=== PATIENT | female | born 1985 | race Caucasian/White ===

== ENCOUNTER → 2016-11-23 | Outpatient (CLI) | payer OTHER ==
--- NOTE | 2016-11-23 15:15 | Diagnostic Imaging Report ---
[facility] [address] [facility].[address] [address] Report Submission Date: Nov 23, 2016 2:28:42 PM CDT Patient Study Name: XIMENA ROQUE Date: Nov 23, 2016 1:49:38 PM CDT Modality Type: US Gender: F Description: TRANSVAGINAL PELVIS : 89 Institution: [facility] Physician DAFNE PACK - CIERRA Transvaginal pelvic ultrasound CLINICAL HISTORY: Lower abdominal pain for 3 days. TECHNIQUE: Real-time sonography of the pelvis is performed in transverse and longitudinal views using endovaginal technique. FINDINGS: The uterus measures 8.1 cm in length by 3.6 cm in AP and 4.0 cm coronal dimension. Endometrium is well-defined and measures 9 mm in thickness. Right ovary measures 2.8 x 2.2 x 2.6 cm in size with a calculated volume of 8.2 mL. Left ovary measures 3.2 x 1.5 x 2.6 cm in size with a calculated volume of 6.6 mL. Ovarian follicles are present bilaterally. Blood flow is confirmed in both ovaries on color flow imaging and Doppler interrogation. There is no free fluid in the pelvis or pelvic mass. There is slight distortion of the endocervical canal although there is no obvious cervical mass or large nabothian cyst. This may be related to isoechoic fibroid. IMPRESSION: Prominent bilateral follicles. Distortion of the endocervical canal likely related to isoechoic fibroid. Electronically signed on Nov 23, 2016 2:28:42 PM CDT by: Andi YODER
== END ==
LOC: RAD 13:36
PROVIDERS: ATTEND Family Medicine
DX: R10.30 Lower abdominal pain, unspecified (principal)
CPT/HCPCS: 76830

== ENCOUNTER 2017-08-10 14:15 | Emergency (ER) | payer SELFPAY ==
--- NOTE | 2017-08-10 14:31 | ED Physician Documentation ---
General Adult - HISTORIAN Historian: patient - HPI Stated Complaint: R wrist pain Chief Complaint: General Adult Onset: days ago (2) Timing: still present Severity: moderate Further Comments: yes (Pt is a 31 yo female with R wrist pain who fell while she was mushroom hunting 2 days ago. Pt was seen by pcp, but did not have an x- ray and pain has continued. Pt was rx'd prednisone, but says she had an adverse reaction to this.) - ROS CONST: no problems EYES/ENT: none CVS/RESP: none GI/: none MS/SKIN/LYMPH: other (R wrist pain/injury) - PAST HX Past History: other (anxiety/depression) Allergies/Adverse Reactions: Allergies Allergy/AdvReac Type Severity Reaction Status Date / Time Penicillins Allergy Unverified 07/20/17 08:49 "Cillins" Allergy Intermediate Hives Uncoded 08/10/17 14:39 Home Medications: Ambulatory Orders Medication Instructions Recorded Citalopram Hydrobromide 20 mg PO DAILY u2 07/20/17 [Citalopram Hbr] Gabapentin 100 mg PO BID av 07/20/17 Ibuprofen 800 mg PO QID u2 07/20/17 Ropinirole HCl 0.5 mg PO HS u2 07/20/17 - SOCIAL HX Smoking History: cigarettes - FAMILY HX Family History: No - REVIEWED ASSESSMENTS Nursing Assessment Reviewed: Yes Vitals Reviewed: Yes Progress - Progress Progress: X-ray hand/wrist: neg Toradol 60 mg IM wrist splint NSAIDS Ice General Adult Physical Exam - PHYSICAL EXAM GENERAL APPEARANCE: mild distress NECK: normal inspection, supple RESPIRATORY: no resp distress, chest non-tender, breath sounds normal CVS: reg rate & rhythm, heart sounds normal SKIN: warm/dry, normal color EXTREMITIES: other (R wrist tenderness, FROM) NEURO: oriented X3, motor nml, sensation nml Discharge Clincal Impression: Wrist sprain Qualifiers: Encounter type: initial encounter Laterality: right Qualified Code(s): S63.501A - Unspecified sprain of right wrist, initial encounter Referrals: Katie Rodriguez MD [Primary Care Provider] - 2 Days Condition: Stable Disposition: 01 HOME, SELF-CARE Decision to Admit: NO Decision Time: 15:30
[2017-08-10] MEDS ORDERED: KETOROLAC TROMETHAMINE 60 MG/2 ML VIAL IM ONE (15:21)
[2017-08-10 15:36] VITALS: BP 128/72
--- NOTE | 2017-08-10 19:46 | Diagnostic Imaging Report ---
[facility] [address] [facility].[address] [address] Report Submission Date: August 10, 2017 3:15:37 PM CDT Patient Study Name: XIMENA ESPINOZA Date: August 10, 2017 2:42:24 PM CDT Modality Type: DX Gender: F Description: UPPER EXTREMITY : 89 Institution: [facility] Physician: ROXANNA CROWLEY Examination: Plain film right wrist History: RT WRIST, PAIN IN RT WRIST AFTER FALL 5 DAYS AGO (Hx) Comparison exams: None available Findings: 3 views the right wrist demonstrate normal cortical margins. No fracture. No dislocation. No soft tissue abnormality. Impression: No acute osseous abnormality Electronically signed on August 10, 2017 3:15:37 PM CDT by: Clarence YODER
--- NOTE | 2017-08-10 19:46 | Diagnostic Imaging Report ---
[facility] [address] [facility] [address] [address] Report Submission Date: August 10, 2017 3:17:58 PM CDT Patient Study Name: XIMENA ESPINOZA Date: August 10, 2017 2:45:32 PM CDT Modality Type: DX Gender: F Description: UPPER EXTREMITY : 89 Institution: [facility] Physician: ROXANNA CROWLEY Examination: Plain film right hand History: RT HAND, PAIN IN RT HAND AFTER FALL 5 DAYS AGO (Hx) Comparison exams: None available Findings: 3 views the right hand demonstrate normal cortical margins. No fracture. No dislocation. No soft tissue abnormality. Impression: No acute osseous abnormality Electronically signed on August 10, 2017 3:17:58 PM CDT by: Clarence YODER
== END 2017-08-10 15:35 | disposition home or self-care (01) ==
LOC: ED 14:15
DX: S63.501A Unspecified sprain of right wrist, initial encounter (principal); W19.XXXA Unspecified fall, initial encounter; Y93.01 Activity, walking, marching and hiking
CPT/HCPCS: 73110; 73130; J1885; L3908; 96372; 99283